=== PATIENT | female | born 1955 | race Caucasian/White ===

== ENCOUNTER 2024-01-23 14:33 | Emergency (ER) | payer OTHER ==
[~2024-01-23] VITALS: Ht 154.9 cm; Wt 54.4 kg
[2024-01-23 14:37] VITALS: BP_SYST 113; PULSE 60; RESP 18; TEMP 98.3; O2SAT 98
[2024-01-23 16:00] LABS: BASOPHILS # (AUTO) 0.1 K/uL (0.0-0.2); BASOPHILS % (AUTO) 1.2 % (0.0-2.0); EOSINOPHILS # (AUTO) 0.2 K/uL (0.0-0.4); EOSINOPHILS % (AUTO) 1.9 % (0.0-4.0); HEMATOCRIT 35.9 % (36-48); HEMOGLOBIN 12.1 g/dL (12.0-16.0); LYMPHOCYTES # (AUTO) 3.1 K/uL (1.0-5.5); LYMPHOCYTES % (AUTO) 35.4 % (20.5-51.5); MEAN CORPUSCULAR HEMOGLOBIN 30 pg (27-31); MEAN CORPUSCULAR HGB CONC 34 % (32-36); MEAN CORPUSCULAR VOLUME 89 fL (79.0-98.0); MONOCYTES # (AUTO) 0.8 K/uL (0.0-1.0); MONOCYTES % (AUTO) 9.3 % (1.7-9.3); NEUTROPHILS # (AUTO) 4.6 K/uL (1.8-7.7); NEUTROPHILS % (AUTO) 52.2 % (40.0-70.0); PLATELET COUNT (AUTO) 418 K/uL (130-430); RED BLOOD CELL COUNT(AUTO) 4.05 MIL/uL (4.2-6.2); RED CELL DISTRIBUTION WIDTH 15.1 % (9.0-15.0); WHITE BLOOD COUNT (AUTO) 8.9 K/uL (4.8-10.8)
[2024-01-23 16:11] LABS: ANION GAP 11 (5-15); CALCIUM 9.5 mg/dL (8.4-11.0); CARBON DIOXIDE 26 mmol/L (23-29); CHLORIDE 104 mmol/L (98-107); CREATININE 1.22 mg/dL (0.55-1.30); GFR AFRICAN AMERICAN 56 mL/min (>90); GLUCOSE 90 mg/dL (74-106); POTASSIUM 4.5 mmol/L (3.5-5.1); SODIUM SERUM 141 mmol/L (136-145); UREA NITROGEN, BLOOD 20 mg/dL (8-21)
[2024-01-23 16:12] LABS: ALCOHOL, BLOOD < 3 mg/dL (<10); GFR NON AFRICAN-AMERICAN 46 mL/min (>90)
[2024-01-23 16:23] LABS: BILIRUBIN,URINE 1+ (NEGATIVE); CLARITY/URINE CLEAR (CLEAR); COLOR,URINE YELLOW (YELLOW); GLUCOSE,URINE NEGATIVE (NEGATIVE); KETONES,URINE 1+ (NEGATIVE); LEUKOCYTE ESTERASE ,URINE TRACE (NEGATIVE); NITRITE, URINE NEGATIVE (NEGATIVE); PROTEIN URINE TRACE (NEGATIVE)
[2024-01-23 16:29] LABS: BLOOD, URINE TRACE (NEGATIVE)
[2024-01-23 16:37] LABS: BARBITURATE, URINE NEGATIVE (NEG <=200); BENZODIAZEPINE, URINE POSITIVE (NEG <=150); METHAMPHETAMINES SCREEN,URINE NEGATIVE (NEG <=500); URINE AMPHETAMINE NEGATIVE (NEG <=500); URINE METHADONE NEGATIVE (NEG <=200)
[2024-01-23 16:38] LABS: CANNABINOID, URINE NEGATIVE (NEG <=50); COCAINE, URINE NEGATIVE (NEG <=150); OPIATE, URINE NEGATIVE (NEG <=100); PHENCYCLIDINE SCREEN,URINE NEGATIVE (NEG <=25); UR TRICYCLIC ANTIDEPRESSANTS POSITIVE (NEG <=300); URINE OXYCODONE SCREEN NEGATIVE (NEG <=100)
[2024-01-23 16:44] LABS: BACTERIA,URINE MODERATE /HPF (None Seen)
[2024-01-23 16:49] LABS: PROTHROMBIN TIME 10.5 SECS (9.5-12.5)
[2024-01-23] MEDS: NACL 0.9% 1,000 ML IV ONE (16:49)
[2024-01-23] MEDS: cefTRIAXone 1 GM IVPB PREMIX 50 ML IV ONE (18:08)
[2024-01-23] MEDS ORDERED: NITR-85 PO (18:25)
[2024-01-23] MEDS ORDERED: ACET-2634 PO (18:25)
[2024-01-23] MEDS: MIRTAZAPINE 15 MG TABLET PO ONE (21:00)
[2024-01-23] MEDS ORDERED: DONEPEZIL HCL 5 MG TABLET (ARICEPT) PO SCH (21:00)
[2024-01-23] MEDS ORDERED: MIRTAZAPINE 15 MG TABLET PO SCH (21:00)
[2024-01-23] MEDS: DONEPEZIL HCL 5 MG TABLET (ARICEPT) PO ONE (21:31)
[2024-01-23] MEDS: QUEtiapine FUMARATE 100 MG TABLET PO SCH (21:31)
[2024-01-23] MEDS ORDERED: NACL 0.9% 1,000 ML IV ONE (22:45)
[2024-01-23 23:16] VITALS: BP_SYST 112; PULSE 73; RESP 17; TEMP 97.5; O2SAT 99
== END 2024-01-23 23:22 | disposition home or self-care (01) ==
LOC: SED 14:33
DX: S00.83XA Contusion of other part of head, initial encounter (principal); N39.0 Urinary tract infection, site not specified; I10 Essential (primary) hypertension; Z79.899 Other long term (current) drug therapy; W01.0XXA Fall on same level from slipping, tripping and stumbling without subsequent striking against object, initial encounter; Y93.89 Activity, other specified; Y92.89 Other specified places as the place of occurrence of the external cause; Y99.8 Other external cause status
CPT/HCPCS: 99285; 70450; 96365; 71045; 96361; 80307; 80048; 81000; 81001; 85025; 85610; 85730; 87086; 84484; 36415; 93005; 72125; 82948; 81015; G0482; J0696; J7030; 87186